=== PATIENT | female | born 1985 | race African-American/Black ===

== ENCOUNTER 2018-10-03 22:15 | Emergency (ER) | payer SELFPAY ==
[2018-10-03] MEDS ORDERED: Ketorolac Tromethamine 60 MG/2 ML VIAL ONE (22:32)
== END 2018-10-03 22:39 | disposition home or self-care (01) ==
LOC: BURERS 22:15
DX: T63.481A Toxic effect of venom of other arthropod, accidental (unintentional), initial encounter (principal); F17.210 Nicotine dependence, cigarettes, uncomplicated
CPT/HCPCS: 96372; J1885

== ENCOUNTER 2019-04-27 21:37 | Emergency (ER) | payer BC, SELFPAY ==
[2019-04-27] MEDS ORDERED: Oseltamivir 75 MG CAP ONE (21:58)
== END 2019-04-27 22:00 | disposition home or self-care (01) ==
LOC: BURERS 21:37
DX: J11.1 Influenza due to unidentified influenza virus with other respiratory manifestations (principal); F17.210 Nicotine dependence, cigarettes, uncomplicated; Z79.899 Other long term (current) drug therapy
CPT/HCPCS: 99283